=== PATIENT | female | born 1975 | race Caucasian/White ===

== ENCOUNTER 2016-12-20 09:00 | Emergency (ER) | payer OTHER ==
[~2016-12-20] VITALS: Ht 170.2 cm; Wt 64.1 kg
[~2016-12-20 09:00] MED LIST: LEXAPRO10 MG PO; PERCOCET 5/31 TABLET PO; PROZAC10 MG PO; TRAMADOL HCL50 MG PO
[2016-12-20] MEDS ORDERED: HYDROCODON-ACE1 EAC8 PO (10:44)
[2016-12-20] MEDS ORDERED: ESTRADIOL1 MG PO (10:44)
[2016-12-20 11:27] VITALS: BP 102/65
[2016-12-20] MEDS ORDERED: NAPROXEN500 MG PO (11:30)
== END 2016-12-20 11:45 | disposition home or self-care (01) ==
LOC: EME → EDBD 09:00 → EME 11:45
DX: S01.01XA Laceration without foreign body of scalp, initial encounter (principal); S09.8XXA Other specified injuries of head, initial encounter; S16.1XXA Strain of muscle, fascia and tendon at neck level, initial encounter; S30.0XXA Contusion of lower back and pelvis, initial encounter; W01.0XXA Fall on same level from slipping, tripping and stumbling without subsequent striking against object, initial encounter; Y93.02 Activity, running; Z98.1 Arthrodesis status; Z23 Encounter for immunization
CPT/HCPCS: 72125; 72220; 99281; 99285; J1885